=== PATIENT | female | born 1990 | race Two or more races ===

== ENCOUNTER 2018-09-21 13:15 | Emergency (ER) | payer OTHER ==
--- NOTE | 2018-09-21 13:37 | ED ---
GI/ HPI - HPI Summary HPI Summary: 27 year old F presenting to [facility] accompanied by with a chief complaint of rectal pain since 27 weeks ago, worse since today. The patient rates the pain 9/10 in severity. Symptoms aggravated by nothing. Symptoms alleviated by nothing. Patient reports painful hemorrhoids and constipation. Patient denies abdominal pain. Patient has taken [id number] stool softener [employer] to treat her constipation. Patient is also taking probiotics. Patient is 27 weeks . /A0. - History of Current Complaint Chief Complaint: EDConstipation Time Seen by Provider: 09/21/18 13:28 Stated Complaint: HEMORRHOID PROBLEM/27 WEEKS PREG/ PER PT Hx Obtained From: Patient Onset/Duration: Started Weeks Ago - 27, Still Present, Worse Since - today Timing: Constant Severity: Severe Current Severity: Severe Pain Intensity: 9 Location of Pain: Other - rectal Associated Signs and Symptoms: Positive: Other: - painful hemorrhoids and constipation; NEG: abdominal pain Additional Signs & Symptoms: Positive: Other: - painful hemorrhoids and constipation; NEG: abdominal pain Aggravating Factor(s): Nothing Alleviating Factor(s): Nothing - Allergy/Home Medications Allergies/Adverse Reactions: Allergies Allergy/AdvReac Type Severity Reaction Status Date / Time No Known Allergies Allergy Verified 09/21/18 13:25 Home Medications: Home Medications Docusate Sodium [Colace] 100 mg PO TID 09/21/18 [History Confirmed 09/21/18] L.acidoph,Paracasei, B.lactis [Probiotic] 1 cap PO DAILY 09/21/18 [History Confirmed 09/21/18] Multivitamin Tablet 1 tab PO DAILY 09/21/18 [History Confirmed 09/21/18 ] PMH/Surg Hx/FS Hx/Imm Hx Previously Healthy: No Endocrine/Hematology History: Reports: Other Endocrine/Hematological Disorders - hx PCOS Denies: Hx Diabetes Respiratory History: Denies: Hx Asthma - Surgical History Surgery Procedure, Year, and Place: None Infectious Disease History: No Infectious Disease History: Denies: Traveled Outside the [place] in Last 30 Days - Family History Known Family History: Positive: Other - Fhx hemorrhoids - Social History Alcohol Use: None Hx Substance Use: No Substance Use Type: Reports: None Hx Tobacco Use: No Smoking Status (MU): Never Smoked Tobacco Review of Systems Negative: Fever Positive: Other - rectal pain, painful hemorrhoids and constipation. Negative: Abdominal Pain All Other Systems Reviewed And Are Negative: Yes Physical Exam - Summary Physical Exam Summary: VITAL SIGNS: Reviewed. GENERAL: Patient is a well-developed and nourished FEMALE who is lying comfortable in the stretcher. Patient is not in any acute respiratory distress. HEAD AND FACE: No signs of trauma. No ecchymosis, hematomas or skull depressions. No sinus tenderness. EYES: PERRLA, EOMI x 2, No injected conjunctiva, no nystagmus. EARS: Hearing grossly intact. Ear canals and tympanic membranes are within normal limits. MOUTH: Oropharynx within normal limits. NECK: Supple, trachea is midline, no adenopathy, no JVD, no carotid bruit, no c- spine tenderness, neck with full ROM. CHEST: Symmetric, no tenderness at palpation LUNGS: Clear to auscultation bilaterally. No wheezing or crackles. CVS: Regular rate and rhythm, S1 and S2 present, no murmurs or gallops appreciated. ABDOMEN: Abdominal distention above umbilicus consistent with gestational age. Soft, non-tender EXTREMITIES: FROM in all major joints, no edema, no cyanosis or clubbing. NEURO: Alert and oriented x 3. No acute neurological deficits. Speech is normal and follows commands. SKIN: Dry and warm. Rectal exam chaperoned by nurse Sirena: Patient has multiple small hemorrhoids without any bleeding Triage Information Reviewed: Yes Vital Signs On Initial Exam: Initial Vitals Temp Pulse Resp BP Pulse Ox 97.8 F 91 16 131/89 99 09/21/18 13:21 09/21/18 13:21 09/21/18 13:21 09/21/18 13:21 09/21/18 13:21 Vital Signs Reviewed: Yes Diagnostics - Vital Signs Vital Signs Temp Pulse Resp BP Pulse Ox 09/21/18 13:21 97.8 F 91 16 131/89 99 - Laboratory Lab Statement: Any lab studies that have been ordered have been reviewed, and results considered in the medical decision making process. Re-Evaluation - Re-Evaluation First Eval Re-Evaluation Time: 14:08 Comment: Discussed discharge plan with patient and her . They are agreeable GIGU Course/Dx - Course Assessment/Plan: 27 year old F presenting to [facility] accompanied by with a chief complaint of rectal pain since 27 weeks ago, worse since today. The patient rates the pain 9/10 in severity. Symptoms aggravated by nothing. Symptoms alleviated by nothing. Patient reports painful hemorrhoids and constipation. Patient denies abdominal pain. Patient has taken [id number] stool softener [employer] to treat her constipation. Patient is also taking probiotics. Patient is 27 weeks . /A0. The patient has external hemorrhoids but they are not bleeding. There are no thrombosed hemorrhoids. I discussed the case with Dr. Darryl link OB and she recommends for the patient to be given magnesium citrate, milk of magnesia, and the Fleet enema for constipation, and Anusol for the hemorrhoids. I discussed the recommendations with the patient and she agrees. She prefers to take her medications at home and she will follow-up with Dr. Bobo. Patient was instructed to return to the emergency room immediately if any of the symptoms return worsens. Plan of care was discussed with the patient and understands and agrees. All questions were answered at patient satisfaction. There were no further complaints or concerns. Lung exam before discharge: CTA B/L. Good air exchange. No wheezing or crackles heard. CVS: S1 and S2 present. No murmurs appreciated. Patient is alert and oriented x 3. Patient is hemodynamically stable. Patient will be discharged home with follow up with Dr. Bobo in the next 2-3 days - Diagnoses Provider Diagnoses: Constipation, Hemorrhoids - Physician Notifications Discussed Care Of Patient With: Aubrie Andrews Time Discussed With Above Provider: 14:05 Instructed by Provider To: Other - Dr. Andrews, OBGYN, agrees with course of treatment. She recommends magnesium citrate, magnesium hydroxide, and sodium phosphate. Discharge - Sign-Out/Discharge Documenting (check all that apply): Patient Departure - Discharge Patient Received Moderate/Deep Sedation with Procedure: No - Discharge Plan Condition: Stable Disposition: HOME Prescriptions: Hydrocortisone SUPP* [Anusol HC Supp*] 25 mg OR BID #12 supp Patient Education Materials: Constipation (ED), Hemorrhoids (ED) Referrals: Hemanth Bobo MD [Primary Care Provider] - 09/23/18 Additional Instructions: Follow up with Dr. Bobo on Sunday09/23/18. Return to the Emergency Department for new or worsening symptoms. - Billing Disposition and Condition Condition: STABLE Disposition: Home - Attestation Statements Document Initiated by Scribe: Yes Documenting Scribe: Dotty Gomez Provider For Whom Scribe is Documenting (Include Credential): Ben Tracy MD Scribe Attestation: I, Dotty Gomez, scribed for Ben Tracy MD on 09/21/18 at 1429. Scribe Documentation Reviewed: Yes Provider Attestation: The documentation as recorded by the scribe, Dotty Gomez accurately reflects the service I personally performed and the decisions made by me, Ben Tracy MD Status of Scribe Document: Viewed
[2018-09-21] MEDS ORDERED: Magnesium Hydroxide LIQ* 30 ML UDC PO ONE (14:06)
[2018-09-21] MEDS ORDERED: Sodium Phosphate ADULT ENEMA* 118 ml bottle PR ONE (14:06)
[2018-09-21] MEDS ORDERED: Magnesium CITRATE* 300 ML BTL PO ONE (14:06)
[2018-09-21 14:30] VITALS: BP 116/81
== END 2018-09-21 14:29 | disposition home or self-care (01) ==
LOC: ED 13:15
DX: K59.00 Constipation, unspecified (principal); K64.9 Unspecified hemorrhoids
CPT/HCPCS: 99282; A9270-GY